=== PATIENT | male | born 1955 | race Caucasian/White ===

== ENCOUNTER → 2018-03-28 | Outpatient (CLI) | payer BC, OTHER ==
[2018-03-28 13:46] LABS: Blood Urea Nitrogen 16 mg/dL (9-20)
--- NOTE | 2018-03-28 16:34 | CT ---
EXAMINATION TYPE: CT chest w con DATE OF EXAM: 03/28/2018 COMPARISON: 07/20/2017 HISTORY: 62-year-old male COPD, follow up nodule TECHNIQUE: Contiguous axial scanning of the chest after the administration of 100 mL of Isovue 300. Coronal/sagittal reconstructions performed. CT DLP: 417mGycm. Automatic exposure control utilized for a dose reduction. FINDINGS: Heart normal size without pericardial effusion. Aorta normal caliber with mild apical scarring arch calcifications and conventional arch vessel branc juliet anatomy. Redemonstrated mediastinal and hilar lymphadenopathy with lymph nodes measuring up to 1 cm superior m ediastinum, 1.2 cm precarinal, 1.0 cm AP window, 2.2 cm right hilar, 2.1 cm left hilar, 2.2 cm right infrahilar, 1.2 cm subcarinal. Continued trace left pleural effusion. Centrilobular and paraseptal emphysema is present throughout extending down to the lung bases. Diffic ult to exclude superimposed subpleural microcystic change at the lung bases suggest with early honeyc ombing. Numerous bilateral pulmonary nodules are present measuring up to 7 mm. All of these are unchanged fro m 07/20/2017, stable for 8 months. No new pulmonary nodules. No consolidation or pleural effusion. Visualized upper abdomen shows no gross abnormal body. Bones: No osseous destructive process. IMPRESSION: 1. COPD with paraseptal and centrilobular emphysema. As seen previously, subpleural cystic change ext ends to the lung bases and a component of early honeycombing/UIP is difficult to exclude. Clinically correlate. 2. Mediastinal and bilateral hilar lymphadenopathy measuring up to 2.2 cm is essentially unchanged fo r 8 months suggesting a chronic reactive or postinflammatory etiology. Consider an additional one-yea r follow-up. 3. Bilateral pulmonary nodules measuring up to 7 mm are also unchanged for 8 months. 4. Stable trace left pleural effusion, possibly chronic effusion.
== END | disposition home or self-care (01) ==
LOC: RADCTMAIN 12:40
PROVIDERS: ATTEND Internal Medicine
DX: R59.1 Generalized enlarged lymph nodes (principal); J43.2 Centrilobular emphysema; R91.8 Other nonspecific abnormal finding of lung field
CPT/HCPCS: 82565; 84520; 71260; 36415; Q9967

== ENCOUNTER → 2018-08-22 | Outpatient (CLI) | payer BC, OTHER ==
--- NOTE | 2018-08-22 12:02 | XR ---
EXAMINATION TYPE: XR chest 2V DATE OF EXAM: 08/22/2018 COMPARISON: 12/04/2017 TECHNIQUE: PA and lateral views submitted. HISTORY: Shortness of breath FINDINGS: No pneumothorax or pleural effusion. Interstitial pattern suggest chronic interstitial lung disease. Underlying COPD suggested. No pneumothorax. Hypertrophic change of the spine. Subsegmental changes ri ght lung base. IMPRESSION: 1. Coarsened interstitium can be associated with chronic interstitial lung disease correlate clinical ly. Patchy density at the right lung base particularly noted lateral view may represent atelectasis o r early infiltrate. Correlate clinically.
== END | disposition home or self-care (01) ==
LOC: RADXRYALE 10:50
PROVIDERS: ATTEND Family Medicine
DX: J98.4 Other disorders of lung (principal); J44.1 Chronic obstructive pulmonary disease with (acute) exacerbation
CPT/HCPCS: 71046

== ENCOUNTER → 2018-09-23 | Outpatient (CLI) | payer BC, OTHER ==
--- NOTE | 2018-09-23 14:11 | CT ---
EXAMINATION TYPE: CT chest wo con DATE OF EXAM: 09/23/2018 COMPARISON: Chest x-ray August 22, 2018. CT chest March 28, 2018 HISTORY: Abnormal lung findings, shortness of breath and cough. CT DLP: 350.5 mGycm. Automated Exposure Control for Dose Reduction was Utilized. TECHNIQUE: CT scan of the thorax is performed without IV contrast. FINDINGS: LUNGS: Moderate underlying emphysematous changes redemonstrated with peripheral scattered bulla and b leb formation seen bilaterally involving upper and lower lungs. There is peripheral reticulation and fibrosis bilaterally. There is some honeycombing in the periphery of the bilateral bases redemonstrat ed. No pleural effusion or pneumothorax is seen bilaterally. Postinflammatory tiny nodularity is agai n seen. No new greater than 5 mm parenchymal nodules are noted. MEDIASTINUM: Lack of IV contrast is noted to limit evaluation for mediastinal and especially hilar ad enopathy. There are no definitive new greater than 1 cm hilar or mediastinal lymph nodes. Prominent slightly enlarged prevascular and pericarinal lymph nodes axial images 22 and 25 are stable. No cardi omegaly or pericardial effusion is seen. OTHER: S-shaped scoliosis is present. Single calcification hepatic dome axial image 44 is redemonstra santos presumed benign. IMPRESSION: Moderate to severe chronic parenchymal changes redemonstrated, component of chronic emphy sema suspected however IPF is not excluded. No new acute pulmonary process clearly identified.
== END | disposition home or self-care (01) ==
LOC: RADCTMAIN 13:03
PROVIDERS: ATTEND Internal Medicine
DX: R91.8 Other nonspecific abnormal finding of lung field (principal)
CPT/HCPCS: 36415; 71250; 82565; 84520